=== PATIENT | male | born 2000 | race Caucasian/White ===

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

== ENCOUNTER 2018-06-13 17:10 | Emergency (ER) | payer BC ==
[~2018-06-13] VITALS: Ht 175.3 cm; Wt 68.0 kg
[~2018-06-13 17:10] MED LIST changes: +NORCO 5-325 TA1 EACH PO
--- OUTSIDE RECORDS SUMMARY | 2018-06-13 17:12 | XMS ---
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 Gabe has no Care Guidelines for this patient. Rafael VISIT COUNT (12 MO.) 1 VENKATESH Peralta TOTAL 1 NOTE: Visits indicate total known visits. ED/UCC VISIT TRACKING (12 MO.) 06/13/2018 17:10 [facility] [place] TYPE: Emergency COMPLAINT: - RASH INPATIENT VISIT TRACKING (12 MO.) No inpatient visits to display in this time frame [id number]
[2018-06-13] MEDS ORDERED: DOXYCYCLINE MO100 MG PO (18:34)
[2018-06-13] MEDS ORDERED: PREDNISONE20 MG PO (18:34)
== END 2018-06-13 18:48 | disposition home or self-care (01) ==
LOC: ED 17:10
DX: J02.9 Acute pharyngitis, unspecified (principal); F17.200 Nicotine dependence, unspecified, uncomplicated
CPT/HCPCS: 86308; 87081; 87880; 99283; J7512

== ENCOUNTER 2022-09-20 14:35 | Emergency (ER) | payer SELFPAY ==
[~2022-09-20] VITALS: Ht 175.3 cm; Wt 77.1 kg
[~2022-09-20 14:35] MED LIST changes: +DOXYCYCLINE MO100 MG PO; +PREDNISONE20 MG PO
--- OUTSIDE RECORDS SUMMARY | 2022-09-20 15:20 | XMS ---
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 Care History Medical/Surgical 06/14/2018 [facility] - Patient is currently established with [facility]. If patient is seen in the ED during business hours. Please contact [facility] at [facility]. Care Recommendation: This patient has had 5 or more Emergency Department visits in the last 12 months.\T\nbsp; Patient requires education on the scope and purpose of the ED as an acute care provider not a Primary Care Provider and should not be utilized for chronic conditions.\T\nbsp; These are guidelines and the provider should exercise clinical judgment when providing care. E.D. VISIT COUNT (12 MO.) 1 VENKATESH Peralta TOTAL 1 NOTE: Visits indicate total known visits. ED/UCC VISIT TRACKING (12 MO.) 09/20/2022 14:36 V[facility]KATES[facility] [place] TYPE: Emergency COMPLAINT: - VOMITING, R SIDE RIB PAIN INPATIENT VISIT TRACKING (12 MO.) No inpatient visits to display in this time frame [id number]
[2022-09-20 20:44] VITALS: BP 118/72
== END 2022-09-20 20:47 | disposition home or self-care (01) ==
LOC: ED 14:35
DX: R11.2 Nausea with vomiting, unspecified (principal); R10.11 Right upper quadrant pain; R19.7 Diarrhea, unspecified; M19.90 Unspecified osteoarthritis, unspecified site; F17.200 Nicotine dependence, unspecified, uncomplicated
CPT/HCPCS: 36415; 74177; 76705; 80053; 81003; 83690; 83735; 85025; 96361; 96375; 96376; 99284-25; A9270; J1170; J2405; J7030; Q9967